=== PATIENT | female | born 1970 | race Caucasian/White ===

== ENCOUNTER 2021-05-28 18:04 | Emergency (ER) | payer OTHER ==
[~2021-05-28] VITALS: Ht 157.5 cm; Wt 63.5 kg
[2021-05-28 18:18] VITALS: BP 162/119
--- NOTE | 2021-05-28 18:53 | NUR ---
PT AMBULATED TO BED 8
--- NOTE | 2021-05-28 19:42 | NUR ---
Said examining patient.
[2021-05-28 20:25] LABS: APPEARANCE,URINE SL CLOUDY (CLEAR); BILIRUBIN,URINE NEGATIVE (NEGATIVE); BLOOD, URINE 1+ (NEGATIVE); COLOR,URINE YELLOW (YELLOW); LEUKOCYTE ESTERASE ,URINE 1+ (NEGATIVE); NITRITE, URINE NEGATIVE (NEGATIVE); UGLUCOSE NEGATIVE (NEGATIVE)
--- NOTE | 2021-05-28 21:00 | NUR ---
URINE COLLECTED AND HANDED TO BAR WAITER/WAITRESS IN ER. PREG TO BE RUN IN LAB. ERMD AWARE. ALL ORDERED TESTS ALSO HANDED TO TECH.
[2021-05-28] MEDS ORDERED: METR-435 PO (21:14)
[2021-05-28] MEDS ORDERED: ACYC400T14 PO (21:14)
[2021-05-28] MEDS ORDERED: CEPH500C16 PO (21:14)
[2021-05-28 21:40] VITALS: BP 150/100
[2021-05-28 21:41] LABS: RBC,URINE 0-5 /HPF (0-5); WBC,URINE >25 (MANY) /HPF (0-5)
--- NOTE | 2021-05-28 21:55 | NUR ---
Patient discharged with v/s stable. Written and verbal after care instructions given and explained. Patient verbalized understanding. Ambulatory with steady gait. All questions addressed prior to discharge. Advised to follow up with PMD.
== END 2021-05-28 21:40 | disposition home or self-care (01) ==
LOC: MED 18:04
DX: N76.0 Acute vaginitis (principal); B96.89 Other specified bacterial agents as the cause of diseases classified elsewhere; L73.9 Follicular disorder, unspecified; Z98.890 Other specified postprocedural states; Z79.899 Other long term (current) drug therapy; Z79.2 Long term (current) use of antibiotics
CPT/HCPCS: 36415; 81001; 81025; 87086; 87210; 87491; 99283